=== PATIENT | female | born 1980 | race Caucasian/White ===

== ENCOUNTER 2019-09-20 12:49 | Emergency (ER) | payer SELFPAY ==
[~2019-09-20] VITALS: Ht 162.6 cm; Wt 75.0 kg
[2019-09-20 14:11] VITALS: BP 148/79
== END 2019-09-20 14:50 | disposition home or self-care (01) ==
LOC: ED 14:30
DX: K02.9 Dental caries, unspecified (principal); F17.210 Nicotine dependence, cigarettes, uncomplicated
CPT/HCPCS: 99283

== ENCOUNTER 2020-02-07 22:26 | Emergency (ER) | payer OTHER ==
[~2020-02-07] VITALS: Ht 160 cm; Wt 81.0 kg
[2020-02-07] MEDS ORDERED: IBUPROFEN 600 MG TABLET ONE (22:47)
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
[2020-02-07] MEDS ORDERED: IBUPROFEN 600 MG TABLET PO ONE (23:00)
[2020-02-08 00:18] VITALS: BP 109/68
== END 2020-02-08 00:21 | disposition home or self-care (01) ==
LOC: ED 23:35
DX: S16.1XXA Strain of muscle, fascia and tendon at neck level, initial encounter (principal); S39.012A Strain of muscle, fascia and tendon of lower back, initial encounter; S29.012A Strain of muscle and tendon of back wall of thorax, initial encounter; M25.511 Pain in right shoulder; M25.512 Pain in left shoulder; Z87.891 Personal history of nicotine dependence; V43.52XA Car driver injured in collision with other type car in traffic accident, initial encounter; Y93.89 Activity, other specified; Y92.488 Other paved roadways as the place of occurrence of the external cause; Y99.8 Other external cause status
CPT/HCPCS: 72050; 72072; 72110; 99284